=== PATIENT | female | born 1965 | race Caucasian/White ===

== ENCOUNTER 2021-09-09 07:21 | Day surgery (SDC) | payer OTHER, SELFPAY ==
[2021-09-09] MEDS ORDERED: diphenhydrAMINE 50 MG/ML VIAL ONE (09:25)
[2021-09-09] MEDS ORDERED: MIDAZOLAM 5 MG/5 ML VIAL ONE (09:25)
[2021-09-09] MEDS ORDERED: fentaNYL citrate 0.05 MG/ML VIAL ONE (09:25)
[2021-09-09] MEDS ORDERED: LIDOCAINE 2% 100 MG/5 ML UJET TP ONE (09:25)
[2021-09-09] MEDS: fentaNYL citrate 0.05 MG/ML VIAL IVP ONE (09:35)
[2021-09-09] MEDS: MIDAZOLAM 2 MG/2 ML VIAL IVP ONE (09:36)
[2021-09-09] MEDS: LIDOCAINE 2% 100 MG/5 ML UJET TP ONE (09:36)
== END 2021-09-09 10:44 | disposition home or self-care (01) ==
LOC: MDS 07:21 → MMU 07:26 → MDS 10:44
PROVIDERS: ATTEND Internal Medicine Gastroenterology
DX: Z12.11 Encounter for screening for malignant neoplasm of colon (principal); K57.30 Diverticulosis of large intestine without perforation or abscess without bleeding; Z86.010 Personal history of colon polyps; E78.00 Pure hypercholesterolemia, unspecified; Z90.710 Acquired absence of both cervix and uterus; Z79.899 Other long term (current) drug therapy
CPT/HCPCS: 45378; 87426; J2250; J3010; J1200